=== PATIENT | female | born 1985 | race Caucasian/White ===

== ENCOUNTER 2016-10-14 08:28 | Emergency (ER) | payer OTHER, SELFPAY ==
[~2016-10-14] VITALS: Ht 160 cm; Wt 73.0 kg
[~2016-10-14 08:28] MED LIST: ACET50TA PO; ANUS2.5C2 EXT; DOCU10ELUD PO; IBUP600T26 PO; MOM30SS PO; PRE-TAB3 PO
[2016-10-14 09:09] LABS: MICROSCOPIC INDICATED? MAN YES (NO)
[2016-10-14 09:11] LABS: BACTERIA, URINE MOD AMOUNT; HYALINE CAST, URINE NONE SEEN /lpf (0-1); MICROSCOPIC EXAM PERFORMED; SQUAMOUS EPITHELIAL CELL URINE SMALL AMOUNT /hpf (SMALL AMT)
[2016-10-14] MEDS ORDERED: MORPHINE 4 MG/ML 1ML SYRINGE IV ONE ×2 (09:15→11:00)
[2016-10-14] MEDS ORDERED: NS 1,000 ML IV ONE (09:15)
[2016-10-14] MEDS ORDERED: ONDANSETRON 4MG/2ML VIAL (J2405) IV ONE (09:15)
[2016-10-14 09:27] LABS: BASO # 0.1 K/mm3 (0.0-0.2); BASO % 1.3 % (0.0-1.0); EOS # 0.4 K/mm3 (0.0-0.50); EOS % 5.2 % (0.0-3.0); LARGE UNSTAINED CELL # 0.1 K/mm3 (0.0-0.4); LARGE UNSTAINED CELL % 1.7 % (0.0-4.0); LYMPH # 1.5 K/mm3 (1.5-6.5); LYMPH % 19.7 % (24.0-44.0); MEAN CORPUSCULAR HEMOGLOBIN 29.5 pg (27.0-33.0); MEAN CORPUSCULAR HGB CONC 34.6 g/dl (32.0-36.5); MEAN CORPUSCULAR VOLUME 85.4 fl (80.0-96.0); MONO # 0.4 K/mm3 (0.0-0.8); MONO % 5.5 % (0.0-5.0); NEUTROPHILS % 67.9 % (36.0-66.0); PLATELET COUNT, AUTOMATED 331 k/mm3 (150-450); RED CELL DISTRIBUTION WIDTH 12.3 % (11.5-14.5); WHITE BLOOD COUNT 7.4 K/mm3 (4.0-10.0)
[2016-10-14 09:45] LABS: ALBUMIN/GLOBULIN RATIO 1.08 (1.00-1.93); ALKALINE PHOSPHATASE 53 U/L (45-117); ALT/SGPT 26 U/L (12-78); AMYLASE 47 U/L (25-115); ANION GAP 6 MEQ/L (8-16); AST/SGOT 10 U/L (15-37); BILIRUBIN,DIRECT 0.1 MG/DL (0.0-0.2); BILIRUBIN,TOTAL 0.5 MG/DL (0.2-1.0); BLOOD UREA NITROGEN 10 MG/DL (7-18); CALCIUM LEVEL 9.3 MG/DL (8.5-10.1); CARBON DIOXIDE LEVEL 26 MEQ/L (21-32); CHLORIDE LEVEL 105 MEQ/L (98-107); CREATININE FOR GFR 0.72 MG/DL (0.55-1.02); GLOMERULAR FILTRATION RATE > 60.0 (>60); GLUCOSE, FASTING 100 MG/DL (70-105); POTASSIUM SERUM 3.4 MEQ/L (3.5-5.1); SODIUM LEVEL 137 MEQ/L (136-145); TOTAL PROTEIN 7.7 GM/DL (6.4-8.2)
[2016-10-14 09:50] LABS: CONTROL LINE UCG INT CTR LINE PRESENT
--- NOTE | 2016-10-14 10:33 | REP ---
CT of the abdomen and pelvis without IV and oral contrast: There are no renal calculi. There is right hydronephrosis. There are at least three calcifications in the pelvis on the right, nonspecific, phleboliths versus ureteral. Consider CT urogram to evaluate the relationship of these calcifications with the right ureter. In the pelvis. The right ureter is obscured by adjacent bowel loops on the current study. There is no left hydronephrosis. No pelvic calcifications on the left. There are bilateral tubal ligation clips in the pelvis. The visualized lung rodriguez are clear. The unenhanced hepatic parenchyma, gallbladder, pancreas, spleen, adrenals, abdominal aorta, bowel and mesentery are unremarkable. Pelvis: The appendix has a normal appearance. Uterus and adnexa are unremarkable except for the calcifications on the right. There is sigmoid colon diverticulosis without diverticulitis. There is no ascites or adenopathy. Impression: Right hydronephrosis and hydroureter. There are calcifications in the pelvis on the right and the ureter is obscured in the pelvis by bowel M unable to determine relationship of these calcifications with the right ureter. Consider follow-up CT urogram. Bilateral tubal ligation clips. Sigmoid colon diverticulosis without diverticulitis. The appendix and gallbladder are unremarkable. Signed by Yaya Francis MD 10/14/2016 10:24 A
[2016-10-14] MEDS ORDERED: ISOVUE-370 76% 100ML VIAL (Q9967) As Ordered ONE (10:34)
[2016-10-14] MEDS ORDERED: KETOROLAC 30 MG/ML VIAL (J1885) IV ONE (12:00)
[2016-10-14] MEDS ORDERED: CIPROFLOXACIN 500 MG TAB PO ONE (12:00)
[2016-10-14] MEDS ORDERED: TAMSULOSIN 0.4 MG CAP PO ONE (12:00)
--- NOTE | 2016-10-14 12:00 | REP ---
CT ABDOMEN PELVIS WITH CONTRAST (CT UROGRAM): 10/14/2016. Comparison: Noncontrast CT 10/14/2016. Clinical history: Right flank pain, urinary frequency, hydroureter on noncontrast CT. Pelvic calcifications. Uncertain if phlebolith versus stone. Technique: Patient received a bolus of 100 mL Isovue 370 scanning through the abdomen and pelvis followed by delayed images and rescanning. Coronal and sagittal reconstructions and 3-D MIP reformat for CT urogram performed and rotated about the longitudinal axis of the body. Findings:CT abdomen: There is again noted to be hydronephrosis and hydroureter on the right. The ureter is lost in the deep pelvis with adjacent tissues but I believe it is reconnected and visible on image 113 and below and on images 122 and 123 there is a 4.4 mm stone in that distal right ureter. The right sided hydronephrosis is as seen on the noncontrast CT. Left kidney and collecting system and the upper abdominal organs show no significant findings or changes from previous study. I do not see perinephric or periureteral infiltration of fat. CT pelvis: Pelvic phleboliths are noted bilaterally. This stone in the distal right ureter seen on image 122 and 123 of the delayed images is same level as the contrast column in the left ureteral junction with the bladder. No other findings. The bladder is nearly completely empty which contributes to the challenge of this study. A couple of other calcifications in the right side deep pelvis represent phleboliths. No other findings. Impression: 1. Hydronephrosis and hydroureter on the right with a distal ureteral 4.4 mm stone confirmed in the right UVJ. No other significant finding. Signed by Harman Castañeda MD 10/14/2016 04:38 P
[2016-10-14] MEDS ORDERED: NORCOTAB PO (12:03)
[2016-10-14] MEDS ORDERED: CIPR-249 PO (12:03)
[2016-10-14] MEDS ORDERED: FLOM5CAP PO (12:03)
[2016-10-14 12:33] VITALS: BP 119/81
--- NOTE | 2016-10-14 15:10 | ED PDOC ---
Post-Departure Follow-Up certiied letter sent to pt re formal read of ct. see report. needs fu urology.Sidney Matta MD Oct 14, 2016 15:10
== END 2016-10-14 12:35 | disposition home or self-care (01) ==
LOC: M ED 08:28
DX: N20.1 Calculus of ureter (principal); N30.00 Acute cystitis without hematuria
CPT/HCPCS: 36415; 74176; 74177; 80048; 80076; 81000; 82150; 83690; 84703; 85025; 87086; 96374; 96375; 96376; 99284; J1885; J2405; Q9967